=== PATIENT | female | born 1955 | race Caucasian/White ===

== ENCOUNTER → 2019-02-11 07:01 | Outpatient (CLI) | payer OTHER | END | disposition home or self-care (01) | LOC: D.NM 07:01 | PROVIDERS: ATTEND Nurse Practitioner Family | DX: R10.9 Unspecified abdominal pain (principal) ==

== ENCOUNTER → 2019-04-28 20:54 | Outpatient (CLI) | payer OTHER | END | disposition home or self-care (01) | LOC: D.MAMMO 13:45 | PROVIDERS: ATTEND Family Medicine | DX: Z12.31 Encounter for screening mammogram for malignant neoplasm of breast (principal) ==

== ENCOUNTER 2020-07-27 06:40 | Day surgery (SDC) | payer OTHER ==
[2020-07-22 14:54] LABS: BASOPHILS 0.5 % (0-2); EOSINOPHILS 2.2 % (0-7); HEMATOCRIT 40.8 % (36.0-48.0); HEMOGLOBIN 14.1 g/dL (12-16); IMMATURE GRANULOCYTES 0.3 % (0-5); LYMPHOCYTE ABS# 3.38 10x3/uL (1.18-3.74); LYMPHOCYTES 29.8 % (15-50); MCH 33.8 pg (26.0-34.0); MCHC 34.6 g/dL (31.0-37.0); MCV 97.8 fL (80.0-100.0); MEAN PLATELET VOLUME 10.3 fL (7.4-10.4); MONOCYTES 7.3 % (2-11); NEUTROPHILS 59.9 % (40-80); PLATELET COUNT 351 10x3/uL (130-400); RBC 4.17 10x6/uL (4.00-5.40); RDW 13.4 % (11.5-14.5); WBC 11.4 10x3/uL (4.8-10.8)
[2020-07-27] VITALS (19 sets, daily range): BP systolic 95–134; BP diastolic 62–94; BMI 24.8; BMI 30.1
[~2020-07-27] VITALS: Ht 152.4 cm; Wt 61.7 kg
--- NOTE | ~2020-07-27 | OP ---
PATIENT NAME: BERTIN HERMAN MEDICAL RECORD: [id number] :59 LOCATION:D.OPS ADMISSION DATE: SURGEON: GONZALO BELLAMY MD DATE OF OPERATION: 07/27/2020 PREOPERATIVE DIAGNOSES: Osteophyte formation, disc herniation at C4-5 and C5-6. POSTOPERATIVE DIAGNOSES: Osteophyte formation, disc herniation at C4-5 and C5-6. SURGEON: Gonzalo Bellamy MD. PROCEDURES: Anterior cervical discectomy and fusion at C4-5 and C5-6, PEEK interbody cages at C4-5 and C5-6 with Steffi bone allograft using bone stem cells, a separate anterior cervical plate and screws from [facility], removal of osteophytes. DESCRIPTION OF PROCEDURE: After induction of general endotracheal anesthesia, the patient was positioned supine on the operating table with an interscapular roll. The neck was prepped and draped in the usual sterile fashion. After infiltration of 1:100,000 epinephrine and 1% lidocaine, a transverse skin incision was carried out at the C4-5 interspace. Sharp dissection was used to divide the platysma. Using blunt and sharp dissection with Metzenbaum scissors, I proceeded in the avascular plane medial to the carotid sheath. The C4-5 interspace was identified with fluoroscopic x-ray and a spinal needle. The longus colli muscles were elevated from base of C4, C5 and C6. Self-retaining retractors were placed deep to the longus colli muscles. [place] distracting pins placed in the bodies of C4, C5, and C6. Disc material was removed from the C4-5 and C5-6 interspaces as well as cartilaginous material from the endplates at C4, C5 and C6 with curettes. Under microscopic illumination, osteophytes were drilled away posteriorly with Midas Mitesh drill. The posterior longitudinal ligament was removed with Cloward rongeurs. The dura was decompressed as well. A PEEK interbody cage was placed in each interspace under distraction. Prior to this, each cage was filled with Steffi bone allograft with bone stem cells. A midline anterior cervical plate was used to span the C4-5 and C5-6 interspaces. Self-drilling screws were placed through the holes in the plate. Locking cams were tightened down over the screw heads. Good position of the hardware was confirmed with fluoroscopic x-ray. Meticulous hemostasis was maintained throughout the wound. The wound was irrigated with copious amounts of Ancef irrigant solution. The platysma and subdermal layer closed with interrupted 4-0 Vicryl suture. The skin was reapproximated with Steri-Strips and benzoin. A sterile dressing was applied to the wound. The patient was awakened in good condition and taken to recovery. All counts were reported as correct. Estimated blood loss was minimal. TRANSINT:[id number] Voice Confirmation ID: [id number] DOCUMENT ID: [id number] OPERATIVE REPORT [id number] BERTIN HERMAN JOHN MD CC: [id number] DICTATION DATE: 08/09/20 1036 OUTBOARD SYSTEM OPERATOR: 08/09/20 1114 [facility] [place] 07/28/20 [id number] [place] [address]
[~2020-07-27 06:40] MED LIST: ALBUTEROL SULF8.5 GM INH; ANORO ELLIPTA1 EACH INH; BENADRYL50 MG PO; BUMETANIDE0.5 MG PO; BUSPAR10 MG PO; HYDROCODON-ACE1 EAC7 PO; K-TAB10 MEQ PO; NAPROXEN375 M1 PO; PROTONIX40 MG PO; ZANAFLEX2 M1 PO; ZETIA10 MG PO
[2020-07-28] VITALS (10 sets, daily range): BP systolic 97–139; BP diastolic 53–94; Ht 152.4 cm; Wt 61.7 kg
--- NOTE | 2020-07-28 06:41 | NUR ---
CALLED DR ONTIVEROS AT APPROXIMATELY 1955 ON 07/28/19 FOR AN ORDER FOR NICOTINE PATCH AND UPDATE ON PATIENT STATUS. ORDER GIVEN VIA TELEPHONE AND READ BACK FOR VERIFICATION.
[2020-07-28] MEDS ORDERED: HYDROCODON-ACE1 EA10 PO (08:49)
[2020-07-28] MEDS ORDERED: MEDROL DOSE PACK4 MG PO (08:50)
--- NOTE | 2020-07-28 10:44 | NUR ---
PIV DCD, PT TO DC HOME, SPOKE WITH DR ONTIVEROS AND DENIES ALL QUESTION
--- NOTE | 2020-07-28 11:32 | NUR ---
PT DCD AT 1139
== END 2020-07-28 11:39 | disposition home or self-care (01) ==
LOC: D.OPS 06:40 → D.ICU 11:41 → D.OPS 07-28 11:39
PROVIDERS: Anesthesiology; ATTEND Neurological Surgery
DX: M25.78 Osteophyte, vertebrae (principal); M50.221 Other cervical disc displacement at C4-C5 level; M50.222 Other cervical disc displacement at C5-C6 level; M54.12 Radiculopathy, cervical region